=== PATIENT | female | born 1985 | race Caucasian/White ===

== ENCOUNTER 2025-07-06 14:43 | Outpatient (AMB) | payer OTHER, SELFPAY ==
--- NOTE | 2025-07-06 14:46 | A.OFFPC_ITS ---
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 Glove Presser Required: No Allergies No Known Allergies Allergy (Verified 07/06/25 14:56) Medication List - Last Reconciled 07/07/25 by EDWARD Wetzel drospirenone (contraceptive) (Slynd) 4 mg PO DAILY levothyroxine 50 mcg PO DAILY Tobacco use date assessed: 07/06/25 Dental Screening Dental Screen Date: 07/06/25 Did you have a dental visit in the last 12 months?: Yes Did you have a dental problem in the last 6 months where you did not have access to dental care?: No Was dental information given to patient?: Patient has dentist HPI HPI Comments History of Present Illness Details This is a 40-year-old female with a past medical history of hypothyroidism, hyperlipidemia, obesity, CHEK2 mutation and PCOS presenting to establish care. She would like her physical done today. CheK2 mutation-associated with increased risk of breast cancer and colon cancer. First colonoscopy is recommended at age 41 years. She is followed by the breast specialist at [facility] and has regular mammograms and MRI. She reports last mammogram was in summer 2024 and MRI in October 2024. Patient's mother had breast cancer at age 42. Her sister has a history of melanoma as well as her niece. Patient is agreeable to referral to Dermatology for a skin exam which I recommended doing at least annually. I referred her to [facility]. There is a strong family history of cardiovascular disease. One of her brothers had a heart attack at age 39 and just had a triple CABG at age 55. Her other brother had a heart attack at age 36. One of them is a smoker. Patient has been told she has high cholesterol, but she has not had to take medication for it. She denies chest pain or shortness of breath. She is agreeable to a coronary artery CT scan. We will fax this to [facility]. We will check her fasting lipid profile. I recommended the Mediterranean diet and avoiding smoking and excessive alcohol. Hypothyroidism is managed with levothyroxine 50 mcg daily. She is currently . She does have some fatigue associated with this and has gained weight since the dose of levothyroxine was reduced about 6 months ago. Check TSH. She is concerned about her weight and PCOS and is interested in restarting metformin. She has a history of hypertension previously treated with medications, but she was able to discontinue it. Her blood pressure is elevated today, but she is very nervous. She will follow a low-sodium diet. She should avoid excessive caffeine. She should exercise, and we will recheck this at her follow up appointment. ROS: Constitutional: No unexplained weight loss, fever, chills, fatigue or night sweats. Eyes: No vision changes, blurry vision, double vision, eye pain, eye redness, eye discharge. ENT: No hearing loss, sneezing, congestion, runny nose or sore throat. Respiratory: No shortness of breath, cough or sputum production. Cardiovascular: No chest pain, chest pressure or chest discomfort. No palpitations or pedal edema. Gastrointestinal: No anorexia, nausea, vomiting or diarrhea. No abdominal pain or blood in stool. Genitourinary: No dysuria, hematuria, urinary frequency. Neurologic: No headache, dizziness, syncope, unilateral weakness, ataxia, numbness or tingling in the extremities. Musculoskeletal: No muscle pain, back pain, joint pain or swelling. Hematologic/Lymphatics: No bleeding or bruising. No painful lymph nodes. Skin: No rash Endocrine: No cold or heat intolerance. No polyuria or polydipsia. Psychiatric: No depression. + anxiety Physical exam: Constitutional: Alert, in no distress. Head: Normocephalic. Eyes: Pupils are equal, round and reactive to light. Extraocular muscles intact. Ear, Nose and Throat: Canals clear. TMs normal. Normal nasal mucosa. No nasal discharge. No oral lesions. Neck: Supple, Full range of motion. No lymphadenopathy. No palpable thyroid masses. Respiratory: Clear to auscultation. Cardiovascular: S1 S2 regular. No murmurs. No carotid bruits. Gastrointestinal: Abdomen soft, non-tender, non-distended. Normal bowel sounds. No palpable masses. Neurologic: No focal neurological deficits. Symmetric patellar reflexes. Moves all extremities spontaneously. Sensation intact bilaterally. Skin: No rashes Musculoskeletal: No gross deformities. Normal range of motion. Extremities: Warm and well perfused. No clubbing, cyanosis or edema. Psychiatric: Normal mood and affect [facility] Medical History (Updated 07/07/25 @ 16:05 by EDWARD Wetzel) Obesity (BMI 30.0-34.9) Family history of breast cancer CHEK2 gene mutation positive PCOS (polycystic ovarian syndrome) Family history of early CAD Delivery by section of full-term infant Family history of melanoma Hypothyroid Routine physical examination Hyperlipidemia Surgical History (Updated 07/06/25 @ 16:32 by Kerri Aguilera [facility]) H/O tubal ligation Family History (Updated 07/06/25 @ 16:30 by Kerri Aguilera [facility]) Father Hypertension Hyperlipemia Lung cancer Mother Hypertension Hyperlipemia Cardiovascular disease FH: thyroid disease Paternal Grandmother Asthma Maternal Grandmother Diabetes Social History (Updated 07/06/25 @ 14:58 by Kerri Aguilera [facility]) Housing: House Alcohol intake: current Patient Tobacco Use Status: Never used Tobacco e-Cigarette/Vaping Use: Never Used Second Hand Smoke Exposure: No service: No Current occupational status: employed Current occupation: [employer] Current occupational exposures/hazards: Yes Cognitive needs: No Hearing needs: No Vision needs: No Questionnaire PHQ-9 Over the last 2 weeks, how often have you been bothered by any of the following problems? 1. Little interest or pleasure in doing things: not at all 2. Feeling down, depressed, or hopeless: not at all 3. Trouble falling or staying asleep, or sleeping too much: nearly every day 4. Feeling tired or having little energy: several days 5. Poor appetite or overeating: not at all 6. Feeling bad about yourself - or that you are a failure or have let yourself or your family down: not at all 7. Trouble concentrating on things, such as reading the newspaper or watching television: several days 8. Moving or speaking so slowly that other people could have noticed. Or the opposite - being so fidgety or restless that you have been moving around a lot more than usual: several days 9. Thoughts that you would be better off or of hurting yourself in some way: not at all Total score: 6 Depression Screening Interpretation: Positive Depression Screening Follow-up: Follow-up Visit Requested Depression Screening Done: Yes 03847 - PHQ-9 Billing: Yes Source: Developed by Drs. Shashank Montes De Oca, Thai Winters and colleagues, with an educational nathalia from [employer]. Thrive Questionnaire Date Thrive assessed: 07/06/25 I am a: Patient What is your living situation today?: I have a steady place to live Within the past 12 months, did the food you bought not last and you didn't have the money to get more?: Never true Within the past 12 months, did you worry whether your food would run out before you got money to buy more?: Never true Do you have trouble paying for medicines?: No Do you have trouble getting transportation to medical appointments?: No Do you have trouble paying your heating and electricity bill?: No Do you have trouble taking care of your child, family member or friend?: No Do you have trouble with day-to-day activities such as bathing, preparing meals, shopping, managing finances, etc.?: No Are you currently unemployed and looking for a job?: No Are you interested in more education?: No Please select the resources that you would like help with: None Currently or been in a relationship where the following occur: No concerns reported THRIVE Score: 0 AUDIT C Alcohol Use Questionnaire (AUDIT-C) 1. How often do you have a drink containing alcohol?: Never 3. How often do you have six or more drinks on one occasion?: Never Total Score: 0 TORITO-7 AMB Questionnaire TORITO-7 Date TORITO - 7 assessed: 07/06/25 Feeling nervous, anxious, or on edge: 0 = Not at all Not being able to stop or control worryin = Not at all Worrying too much about different things: 0 = Not at all Trouble relaxin = Not at all Being so restless that it is hard to sit still: 0 = Not at all Becoming easily annoyed or irritable: 0 = Not at all Feeling afraid as if something awful might happen: 0 = Not at all Total TORITO-7 score (0-4 normal; 5-9 mild; 10-14 moderate; 15-21 severe): 0 Source: Developed by Carol Castle Kurt Kroenke and colleagues, with an educational nathalia from [employer]. TORITO-7 Assessment Billing TORITO-7 Assessment Tool: TORITO-7 Assessment 07613 Physical exam (Primary Care) Vital Signs: Last Vital Signs Temp 98.1 F 07/06/25 14:58 Pulse 59 07/06/25 14:58 BP 146/80 H 07/06/25 14:58 Pulse Ox 97 07/06/25 14:58 Oxygen Delivery Method Room Air 07/06/25 14:58 BMI result Body Mass Index 34.4 Tobacco/Smoking Status: Tobacco use Status Tobacco use date assessed 07/06/25 07/06/25 15:01 Patient Tobacco Use Status Never used Tobacco 07/06/25 15:01 e-Cigarette/Vaping Use Never Used 07/06/25 15:01 PHQ-9: PHQ-9 Score PHQ-9: Total score 6 07/06/25 15:45 Depression Screening Interpretation: Positive Depression Screening Follow-up: Follow-up Visit Requested Thrive Assessment: Date of Thrive Assessment Date Thrive assessed 07/06/25 07/06/25 14:47 Currently or been in a relationship where the following occur: No concerns reported Office Procedures Flu Questionnaire Does the patient have a severe egg allergy?: No Does the patient have severe life threatening allergies?: No Has the patient ever had Guillain-[place]land Syndrome?: No Has the patient ever had any past reaction to a flu shot?: No Immunizations Fluarix [id number] (PF) 45 mcg (15 mcg x 3)/0.5 mL IM syringe Performing Provider: EDWARD Wetzel Performing Location[facility] Administered by: Kerri Aguilera CMA on 07/06/25 15:45 Dose Route Admin Location Dispensed Lot Number Expiration Date [facility] Manager Beverage 0.5 mL IM Left Deltoid 0.5 mL [id number] 04/06/26 29278-247-95 [employer] VIS Given Date VIS Provided VIS Publication Date 07/06/25 Single Vaccine 24 Eligibility Eligibility Date Funding Source Not [facility] Eligible 07/06/25 Private Coding Level of Care Code New Pt Level 3 (50478) New Pt Prev Care 18-39yr(66149 Diagnoses Routine physical examination Z00.00 Pure hypercholesterolemia E78.00 Hyperlipidemia type: pure hypercholesterolemia Hypothyroidism, unspecified type E03.9 Hypothyroidism type: unspecified Family history of early CAD Z82.49 Family history of melanoma Z80.8 PCOS (polycystic ovarian syndrome) E28.2 CHEK2 gene mutation positive Z15.89 Family history of breast cancer Z80.3 Obesity (BMI 30.0-34.9) E66.811 Additional Codes TORIOT-7 Assessment Billing - TORITO-7 Assessment Tool: TORITO-7 Assessment 57396 ([id number]) PHQ-9 - 92686 - PHQ-9 Billing: Yes ([id number]) Assessment & Plan Assessment & Plan (1) Routine physical examination: Code(s): Z00.00 - Encounter for general adult medical examination without abnormal findings Category: Medical Plan: Patient is seen today for a routine physical. As part of this visit we reviewed the following issues, which are considered and essential part of preventative health in this age group: - Breast Cancer screening - Annual Pattern Checker exam - Screening for colon cancer - Blood pressure screening - Cholesterol screening - Osteoporosis prevention including calcium/vitamin D intake, weight bearing exercise & smoking cessation - Nutritional and exercise counseling - Counseling of injury prevention including fire prevention, smoke alarms and seat belt usage - Screening for depression - Education about skin cancer - Recommendations about immunizations - Recommendation of an eye exam - Screening for substance abuse (2) Hyperlipidemia: Code(s): E78.5 - Hyperlipidemia, unspecified Category: Medical Qualifiers: Hyperlipidemia type: pure hypercholesterolemia Qualified Code(s): E78.00 - Pure hypercholesterolemia, unspecified Plan: See HPI (3) Hypothyroid: Code(s): E03.9 - Hypothyroidism, unspecified Category: Medical Qualifiers: Hypothyroidism type: unspecified Qualified Code(s): E03.9 - Hypothyroidism, unspecified Plan: See HPI (4) Family history of early CAD: Code(s): Z82.49 - Family history of ischemic heart disease and other diseases of the circulatory system Category: Medical Plan: See HPI (5) Family history of melanoma: Code(s): Z80.8 - Family history of malignant neoplasm of other organs or systems Category: Medical Plan: See HPI (6) PCOS (polycystic ovarian syndrome): Code(s): E28.2 - Polycystic ovarian syndrome Category: Medical Plan: See HPI (7) CHEK2 gene mutation positive: Code(s): Z15.89 - Genetic susceptibility to other disease Category: Medical Plan: See HPI (8) Family history of breast cancer: Code(s): Z80.3 - Family history of malignant neoplasm of breast Category: Medical Plan: See HPI (9) Obesity (BMI 30.0-34.9): Code(s): E66.811 - Obesity, class 1 Category: Medical Plan: See HPI Plan Follow up in 4-6 weeks. Orders: Orders CT Coronary Calcium Score 07/06/25 TSH reflex Free T4 Today E03.9 - Hypothyroidism, unspecified, E78.5 - Hyperlipidemia, unspecified, Z00.00 - Encounter for general adult medical examination without abnormal findings Lipid Panel Today E03.9 - Hypothyroidism, unspecified, E78.5 - Hyperlipidemia, unspecified, Z00.00 - Encounter for general adult medical examination without abnormal findings Comprehensive Met. Panel Today E03.9 - Hypothyroidism, unspecified, E78.5 - Hyperlipidemia, unspecified, Z00.00 - Encounter for general adult medical examination without abnormal findings Complete Blood Count no Diff Today E03.9 - Hypothyroidism, unspecified, E78.5 - Hyperlipidemia, unspecified, Z00.00 - Encounter for general adult medical examination without abnormal findings Influenza 7720-1945 Immunization 07/06/25 Z23 - Encounter for immunization Referrals NUTRITION TECHNICIAN Referral Z00.00 - Encounter for general adult medical examination without abnormal findings Dermatology Referral Z12.83 - Encounter for screening for malignant neoplasm of skin, Z80.8 - Family history of malignant neoplasm of other organs or systems
[2025-07-06 14:58] VITALS: BP 146/80; PULSE 59; TEMP 36.7; O2SAT 97; BMI 34.4
--- OUTSIDE RECORDS SUMMARY | 2025-07-06 16:35 | XMS_ITS ---
Author Name [facility] Organization Unknown Care Team Organization Name Specialty Phone Email Start Date End Da te [facility] Althea Tyler Primary Care 06/14/2023 05/26/2024 [facility] Peña Muniz Primary Care 08/15/202205/08
== END 2025-07-06 15:45 | disposition home or self-care (01) ==
LOC: HO.HMCFM 14:44
PROVIDERS: Visit Provider Physician Assistant Medical
DX: Z23 Encounter for immunization (principal)

== ENCOUNTER → 2025-07-06 14:43 | Outpatient (BNVA) | payer OTHER, SELFPAY | PROVIDERS: Visit Provider Physician Assistant Medical | DX: Z00.00 Encounter for general adult medical examination without abnormal findings (principal); Z76.89 Persons encountering health services in other specified circumstances; Z23 Encounter for immunization; E78.00 Pure hypercholesterolemia, unspecified; E03.9 Hypothyroidism, unspecified; E28.2 Polycystic ovarian syndrome; E66.811 Obesity, class 1; Z68.34 Body mass index [BMI] 34.0-34.9, adult; Z15.89 Genetic susceptibility to other disease; Z80.3 Family history of malignant neoplasm of breast; Z82.49 Family history of ischemic heart disease and other diseases of the circulatory system; Z80.8 Family history of malignant neoplasm of other organs or systems; Z13.31 Encounter for screening for depression; Z13.39 Encounter for screening examination for other mental health and behavioral disorders | CPT/HCPCS: 90471; 90656; 96127 ==

== ENCOUNTER 2025-07-07 08:46 | Outpatient (REF) | payer OTHER, SELFPAY ==
--- OUTSIDE RECORDS SUMMARY | 2025-07-07 09:17 | XMS_ITS | Encounter Summary ---
Author Organization [facility] Address [address] [place] [address] Care Team Providers Care Operating Room Tech Name Role Phone Vero Knight MD Primary Care Provider UnavailAlthea Krishna MD Unavailable UnavailAlthea Krishna MD Primary Care Provider Un available Encounter Details Date Type Department Care Team Description 02/13/2019 Sports Director Report Medical Records [address] [place] [address] Ariana Valentino MD Social History Tobacco Use Types Packs/Day Years Used Date Smoking Tobacco: Former Smokeless Tobacco: Never Alcohol Use Standard Drinks/Week Comments Yes 0 (1 standard drink = 0.6 oz pur e alcohol) very rarely Sex Assigned at Date Recorded Female 05/15/2023 11:29 AM EDT documented as of this encounter Plan of Treatment Not on file documented as of this encounter Visit Diagnoses Not on filedocumented in this encounter Care Teams Operating Room Tech Relationship Specialty Start Date End Date Vero Knight MD PCP - General Internal Medicine 08/13/15 05/06/23 Althea Tyler MD PCP - General Internal Medicine 05/07/23 Althea Tyler MD Specialist Internal Medicine 05/07/23 documented as of this encounter
--- OUTSIDE RECORDS SUMMARY | 2025-07-07 09:17 | XMS_ITS | Encounter Summary ---
Author Organization [facility] Address [address] [place] [address] Care Team Providers Care Vp Hr Diversity Name Role Phone Althea Tyler MD Unavailable Unavaila ble Althea Tyler MD Primary Care Provider Un available Reason for Visit * Reason Onset Date Comments medication problems 05/07/2023 Encounter Details Date Type Department Care Team Description 05/07/2023 Telephone Adult Medicine - [address] [address] Althea Tyler MD medication problems Social History Tobacco Use Types Packs/Day Years Used Date Smoking Tobacco: Former Smokeless Tobacco: Never Alcohol Use Standard Drinks/Week Comments Yes 0 (1 standard drink = 0.6 oz pur e alcohol) very rarely Sex Assigned at Date Recorded Female 05/15/2023 11:29 AM EDT documented as of this encounter Miscellaneous Notes * Telephone Encounter - Maddie Quiñones L.P.N. - 05/07/2023 11:20 AM EDT Patient scheduled a tele health to discuss requesting lab for thyroid Not sure if she is on correct dose * Telephone Encounter - Anastasia Dupont - 05/07/2023 10:14 AM EDT Who is calling? The patient Name of the medication Levothyroxine What is the specific problem or interaction? Pt calling in looking for new PCP, was a pt with tim in [place], PCP now [place]. She has upcoming physical 07/06 however would like to speak with nurse if something can be done regarding her Thyroid medication, pt says her enterprise application architect will no longer be supplying this medication anymore and advised pt that she needs to have PCP prescribe for her, pt says she does not know if she should be continuing on the dose she is on or if it needs to be changed, she feels well however, she does not know her current thyroid levels. If the patient is having a problem with taking the med - how long has the problem been going on? N/A documented in this encounter Plan of Treatment Not on file documented as of this encounter Visit Diagnoses Not on filedocumented in this encounter Care Teams Vp Hr Diversity Relationship Specialty Start Date End Date Althea Tyler MD PCP - General Internal Medicine 05/07/23 Althea Tyler MD Specialist Internal Medicine 05/07/23 documented as of this encounter
--- OUTSIDE RECORDS SUMMARY | 2025-07-07 09:17 | XMS_ITS | Encounter Summary ---
Author Organization [facility] Address [address] [place] [address] Care Team Providers Care Deputy Prosecuting Attorney Name Role Phone Vero Knight MD Primary Care Provider UnavailAlthea Krishna MD Unavailable Althea Polanco MD Primary Care Provider Un available Encounter Details Date Type Department Care Team Description 05/21/2019 Release of Information Medical Records [address] [place] [address] Abstract, Provider Social History Tobacco Use Types Packs/Day Years [...] on filedocumented in this encounter Care Teams Deputy Prosecuting Attorney Relationship Specialty Start Date End Date Vero Knight MD PCP - General Internal Medicine 08/13/15 05/06/23 Althea Tyler MD PCP - General Internal Medicine 05/07/23 Althea Tyler MD Specialist Internal Medicine 05/07/23 documented as of this encounter
--- OUTSIDE RECORDS SUMMARY | 2025-07-07 09:17 | XMS_ITS | Encounter Summary ---
Author Organization [facility] Address [address] [place] [address] Care Team Providers Care Waste Machine Operator Name Role Phone Vero Knight MD Primary Care Provider UnavailAlthea Krishna MD Unavailable Althea Polanco MD Primary Care Provider Un available Encounter Details Date Type Department Care Team Description 05/17/2017 Humanities Division Chair Report Medical Records [address] [place] [address] Asia Barriga Social History Tobacco Use Types Packs/Day Years Used Date Smoking Tobacco: Former Alcohol Use Standard Drinks/Week Comments Yes 0 (1 standard drink = 0.6 oz pur e alcohol) very rarely Sex Assigned at Date Recorded Female 05/15/2023 11:29 AM EDT documented as of this encounter Plan of Treatment Not on file documented as of this encounter Visit Diagnoses Not on filedocumented in this encounter Care Teams Waste Machine Operator Relationship Specialty Start Date End Date Vero Knight MD PCP - General Internal Medicine 08/13/15 05/06/23 Althea Tyler MD PCP - General Internal Medicine 05/07/23 Althea Tyler MD Specialist Internal Medicine 05/07/23 documented as of this encounter
--- OUTSIDE RECORDS SUMMARY | 2025-07-07 09:17 | XMS_ITS | Encounter Summary ---
Author Organization [facility] Address [address] [place] [address] Care Team Providers Care Terrazzo Installer Name Role Phone Althea Tyler MD Primary Care Provider Un available Encounter Details Date Type Department Care Team Description 01/29/2024 [facility] Medical Records [address] [place] [address] Shashank Rodriguez Social History Tobacco Use Types Packs/Day Years [...] on filedocumented in this encounter Care Teams Terrazzo Installer Relationship Specialty Start Date End Date Althea Tyler MD PCP - General Internal Medicine 05/07/23 documented as of this encounter
--- OUTSIDE RECORDS SUMMARY | 2025-07-07 09:17 | XMS_ITS | Encounter Summary ---
Author Organization [facility] Address [address] [place] [address] Care Team Providers Care Defensive Secondary Coach Name Role Phone Vero Knight MD Primary Care Provider UnavailAlthea Krishna MD Unavailable Althea Polanco MD Primary Care Provider Un available Encounter Details Date Type Department Care Team Description 01/29/2019 Release of Information Medical Records [address] [place] [id number] Abstract, Provider Social History Tobacco Use Types [...] on filedocumented in this encounter Care Teams Defensive Secondary Coach Relationship Specialty Start Date End Date Vero Knight MD PCP - General Internal Medicine 08/13/15 05/06/23 Althea Tyler MD PCP - General Internal Medicine 05/07/23 Althea Tyler MD Specialist Internal Medicine 05/07/23 documented as of this encounter
--- OUTSIDE RECORDS SUMMARY | 2025-07-07 09:17 | XMS_ITS | Encounter Summary ---
Author Organization [facility] Address [address] [place] [address] Care Team Providers Care Laundry Technician Name Role Phone Vero Knight MD Primary Care Provider UnavailAlthea Krishna MD Unavailable Althea Polanco MD Primary Care Provider Un available Encounter Details Date Type Department Care Team Description 03/19/2017 Hospital Medical Records [address] [place], [place] [id number] [place] [address] Renee Social History Tobacco Use Types Packs/Day Years [...] on filedocumented in this encounter Care Teams Laundry Technician Relationship Specialty Start Date End Date Vero Knight MD PCP - General Internal Medicine 08/13/15 05/06/23 Althea Tyler MD PCP - General Internal Medicine 05/07/23 lAthea Tyler MD Specialist Internal Medicine 05/07/23 documented as of this encounter
--- OUTSIDE RECORDS SUMMARY | 2025-07-07 09:17 | XMS_ITS | Encounter Summary ---
Author Organization [facility] Address [address] [place] [address] Care Team Providers Care Mechanical And Auto Body Car Checker Name Role Phone Vero Knight MD Primary Care Provider UnavailAlthea Krishna MD Unavailable Althea Polanco MD Primary Care Provider Un available Encounter Details Date Type Department Care Team Description 02/16/2017 Transfer Records Medical Records [address] [place] [address] Abstract, Provider Social History Tobacco Use Types Packs/Day Years Used Date Smoking Tobacco: Passive Smo ke Exposure - Never Smoker Alcohol Use Standard Drinks/Week Comments Yes 0 (1 standard drink = 0.6 oz pur e alcohol) very rarely Sex Assigned at Date Recorded Female 05/15/2023 11:29 AM EDT documented as of this encounter Plan of Treatment Not on file documented as of this encounter Visit Diagnoses Not on filedocumented in this encounter Care Teams Mechanical And Auto Body Car Checker Relationship Specialty Start Date End Date Vero Knight MD PCP - General Internal Medicine 08/13/15 05/06/23 Althea Tyler MD PCP - General Internal Medicine 05/07/23 Althea Tyler MD Specialist Internal Medicine 05/07/23 documented as of this encounter
--- OUTSIDE RECORDS SUMMARY | 2025-07-07 09:17 | XMS_ITS | Encounter Summary ---
Author Organization [facility] Address [address] [place] [address] Care Team Providers Care Electrical Assembler Name Role Phone Vero Knight MD Primary Care Provider UnavailAlthea Krishna MD Unavailable Althea Polanco MD Primary Care Provider Un available Encounter Details Date Type Department Care Team Description 03/22/2018 Release of Information Medical Records [address] [place] [address] Abstract, Provider Social History Tobacco Use Types [...] on filedocumented in this encounter Care Teams Electrical Assembler Relationship Specialty Start Date End Date Vero Knight MD PCP - General Internal Medicine 08/13/15 05/06/23 Althea Tyler MD PCP - General Internal Medicine 05/07/23 Althea Tyler MD Specialist Internal Medicine 05/07/23 documented as of this encounter
--- OUTSIDE RECORDS SUMMARY | 2025-07-07 09:17 | XMS_ITS | Encounter Summary ---
Author Organization [facility] Address [address] [place] [address] Care Team Providers Care Interior Design Professor Name Role Phone Vero Knight MD Primary Care Provider UnavailAlthea Krishna MD Unavailable Althea Polanco MD Primary Care Provider Un available Encounter Details Date Type Department Care Team Description 04/06/2017 Transfer Records Medical Records [address] [place] [address] Abstract, Provider Social History Tobacco Use Types [...] on filedocumented in this encounter Care Teams Interior Design Professor Relationship Specialty Start Date End Date Vero Knight MD PCP - General Internal Medicine 08/13/15 05/06/23 Althea Tyler MD PCP - General Internal Medicine 05/07/23 Althea Tyler MD Specialist Internal Medicine 05/07/23 documented as of this encounter
--- OUTSIDE RECORDS SUMMARY | 2025-07-07 09:17 | XMS_ITS | Encounter Summary ---
Author Organization [facility] Address [address] [place] [address] Care Team Providers Care Newspaper Correspondent Name Role Phone Vero Knight MD Primary Care Provider UnavailAlthea Krishna MD Unavailable Althea Polanco MD Primary Care Provider Un available Encounter Details Date Type Department Care Team Description 04/18/2016 Customs Compliance Analyst Report Medical Records [address] [place] [address] Laci Pressley MD Social History Tobacco Use Types Packs/Day [...] on filedocumented in this encounter Care Teams Newspaper Correspondent Relationship Specialty Start Date End Date Vero Knight MD PCP - General Internal Medicine 08/13/15 05/06/23 Althea Tyler MD PCP - General Internal Medicine 05/07/23 Althea Tyler MD Specialist Internal Medicine 05/07/23 documented as of this encounter
--- OUTSIDE RECORDS SUMMARY | 2025-07-07 09:17 | XMS_ITS | Encounter Summary ---
Author Organization [facility] Address [address] [place] [address] Care Team Providers Care Cleaner Housekeeping Name Role Phone Saleem Cabrera MD Primary Care Provider Unavailab Fiore Pcp Primary Care Provider Vero Kovacs MD Primary Care Provider Unavaila Althea Pabon MD Unavailable UnavailAlthea Krishna MD Primary Care Provider Un available Encounter Details Date Type Department Care Team Description 03/31/2014 Orders Only Medicine/Pediatrics - [address] [id number] Saleem Cabrera MD Social History Tobacco Use Types Packs/Day Years Used Date Smoking Tobacco: Never Alcohol Use Standard Drinks/Week Comments Yes 0 (1 standard drink = 0.6 oz pur e alcohol) very rarely Sex Assigned at Date Recorded Female 05/15/2023 11:29 AM EDT documented as of this encounter Plan of Treatment Not on file documented as of this encounter Visit Diagnoses Not on filedocumented in this encounter Care Teams Cleaner Housekeeping Relationship Specialty Start Date End Date Saleem Cabrera MD PCP - General Internal Medicine 01/27/14 10/07/14 Rk, Pcp PCP - General Internal Medicine 08/09/15 08/12/15 Vero Knight MD PCP - General Internal Medicine 08/13/15 05/06/23 Althea Tyler MD PCP - General Internal Medicine 05/07/23 Althea Tyler MD Specialist Internal Medicine 05/07/23 documented as of this encounter
[2025-07-07 11:43] LABS: Hematocrit 42.7 % (37.0-47.0); Hemoglobin 14.9 g/dl (12.0-16.0); Mean Corpuscular HGB Conc 34.9 g/dl (31.0-35.0); Mean Corpuscular Hemoglobin 31.2 pg (27.0-33.0); Mean Corpuscular Volume 89.3 fL (80.0-98.0); NRBC Abs Auto 0.000 X10*3/uL (0.0-0.012); NRBC Pct Auto 0.0 /100WBC (0.0-0.2); Platelet Count 416 X10*3/uL (160-400); Red Blood Count 4.78 X10*6/uL (4.20-5.50); White Blood Count 7.4 X10*3/uL (4.8-10.8)
[2025-07-07 12:09] LABS: Alanine Aminotransferase 53 U/L (0-31); Albumin Level 4.8 g/dL (3.5-5.0); Alkaline Phosphatase 81 U/L (39-117); Anion Gap 14 (12-20); Aspartate Amino Transferase 36 U/L (5-31); Blood Urea Nitrogen 16 mg/dL (9-16); Calcium 10.0 mg/dL (8.4-10.2); Carbon Dioxide 25 mmol/L (22-29); Chloride 104 mmol/L (96-108); Cholesterol 212 mg/dL (<200); Estimated Glomerular Filt Rate > 60; HDL Cholesterol 58 mg/dL (>40); Potassium 4.2 mmol/L (3.3-5.1); Sodium 139 mmol/L (135-145); Total Protein 7.8 g/dL (6.5-8.0); Triglycerides 83 mg/dL (<150)
== END 2025-07-07 08:47 | disposition home or self-care (01) ==
LOC: HO.WFDLDS 08:46
PROVIDERS: Visit Provider Physician Assistant Medical
DX: Z00.00 Encounter for general adult medical examination without abnormal findings (principal); E78.5 Hyperlipidemia, unspecified; E03.9 Hypothyroidism, unspecified
CPT/HCPCS: 36415; 80053; 80061; 84443; 85027

== ENCOUNTER 2025-08-06 09:51 | Outpatient (AMB) | payer OTHER, SELFPAY ==
--- NOTE | 2025-08-06 09:58 | MHC.PC.OV ---
Vital Signs 08/06/25 10:01 Height 5 ft 3 in Weight 196 lb 4 oz BMI 34.8 BP 140/90 H Blood Pressure Location Rt brachial Position Sitting Respiration 15 Pulse 81 Pulse Source Pulse Oximeter Temp 98.1 F Temp Source Temporal Artery Scan Pulse Oximetry (%) 98 Oxygen Delivery Method Room Air Intake Visit Reasons: HTN follow up Intake Note: Jennifer presents in the office today for a follow up to hypertension. Allergies No Known Allergies Allergy (Verified 08/06/25 10:01) Tobacco use date assessed: 08/06/25 Dental Screening Dental Screen Date: 08/06/25 Did you have a dental visit in the last 12 months?: Yes Did you have a dental problem in the last 6 months where you did not have access to dental care?: No Was dental information given to patient?: Patient has dentist HPI HPI Comments History of Present Illness Details This is a 40-year-old female with a past medical history of hypothyroidism, hyperlipidemia, obesity, CHEK2 mutation and PCOS presenting for follow up. The patient is going to be repeating lab results that were abnormal in June. Platelet count was 416,000, total bilirubin 1.4, AST 36, ALT 53. LDL cholesterol was also elevated at 138, but HDL and triglycerides were normal. The patient has a history of hypertension and was treated in the past with a beta-tanesha during . Blood pressure was elevated at our last visit, and it is elevated today. The patient has also been monitoring at home, and she has similar blood pressure readings that we reviewed today. She is a nonsmoker. She is avoiding excessive caffeine and following a low-sodium diet. She is trying to exercise more. There is a strong family history of cardiovascular disease. One of her brothers had a heart attack at age 39 and just had a triple CABG at age 55. Her other brother had a heart attack at age 36. One of them is a smoker. Coronary artery CT scan has been ordered. CheK2 mutation-associated with increased risk of breast cancer and colon cancer. First colonoscopy is recommended at age 41 years. She is followed by the breast specialist at [facility] and has regular mammograms and MRI. She reports last mammogram was in summer 2024 and MRI in October 2024. Patient's mother had breast cancer at age 42. Hypothyroidism is managed with levothyroxine 50 mcg daily. TSH is normal. Patient says that her ears have been a little achy, but she denies fevers or chills or hearing loss. ROS: Eyes: No vision changes, blurry vision, double vision Respiratory: No shortness of breath, cough or sputum production. Cardiovascular: No chest pain, chest pressure or chest discomfort. No palpitations or pedal edema. Gastrointestinal: No anorexia, nausea, vomiting or diarrhea. No abdominal pain Neurologic: No headache, dizziness, syncope Psychiatric: No depression. + anxiety Physical exam: Constitutional: Alert, in no distress. Eyes: Pupils are equal, round and reactive to light. Extraocular muscles intact. Ear, Nose and Throat: Canals clear. TMs without erythema, effusion or bulging. Normal nasal mucosa. No nasal discharge. No oral lesions. Respiratory: Clear to auscultation. Cardiovascular: S1 S2 regular. No murmurs. Extremities: Warm and well perfused. No clubbing, cyanosis or edema. Psychiatric: Normal mood and affect [facility] Medical History (Updated 08/06/25 @ 10:26 by EDWARD Wetzel) Essential hypertension Elevated liver enzymes Elevated platelet count Obesity (BMI 30.0-34.9) Family history of breast cancer CHEK2 gene mutation positive PCOS (polycystic ovarian syndrome) Family history of early CAD Delivery by section of full-term Family history of melanoma Hypothyroid Routine physical examination Hyperlipidemia Surgical History (Updated 07/06/25 @ 16:32 by Kerri Aguilera CMA) H/O tubal ligation Family History Father Hypertension Hyperlipemia Lung cancer Mother Hypertension Hyperlipemia Cardiovascular disease FH: thyroid disease Paternal Grandmother Asthma Maternal Grandmother Diabetes Social History (Updated 08/06/25 @ 10:01 by Kerri Aguilera CMA) Housing: House Alcohol intake: current Patient Tobacco Use Status: Never used Tobacco e-Cigarette/Vaping Use: Never Used Second Hand Smoke Exposure: No service: No Current occupational status: employed Current occupation: [employer] Current occupational exposures/hazards: Yes Cognitive needs: No Hearing needs: No Vision needs: No Questionnaire Thrive Questionnaire Date Thrive assessed: 06/30/25 I am a: Patient What is your living situation today?: I have a steady place to live Within the past 12 months, did the food you bought not last and you didn't have the money to get more?: Never true Within the past 12 months, did you worry whether your food would run out before you got money to buy more?: Never true Do you have trouble paying for medicines?: No Do you have trouble getting transportation to medical appointments?: No Do you have trouble paying your heating and electricity bill?: No Do you have trouble taking care of your child, family member or friend?: No Do you have trouble with day-to-day activities such as bathing, preparing meals, shopping, managing finances, etc.?: No Are you currently unemployed and looking for a job?: No Are you interested in more education?: No Please select the resources that you would like help with: None Currently or been in a relationship where the following occur: No concerns reported THRIVE Score: 0 TORITO-7 AMB Questionnaire TORITO-7 Date TORITO - 7 assessed: 07/06/25 Source: Developed by Drs. Shashank Montes De Oca, Carol Whitaker, Thai Henderson and colleagues, with an educational nathalia from [employer]. Physical exam (Primary Care) Vital Signs: Last Vital Signs Temp 98.1 F 08/06/25 10:01 Pulse 81 08/06/25 10:01 Resp 15 08/06/25 10:01 BP 140/90 H 08/06/25 10:01 Pulse Ox 98 08/06/25 10:01 Oxygen Delivery Method Room Air 08/06/25 10:01 BMI result Body Mass Index 34.8 Tobacco/Smoking Status: Tobacco use Status Tobacco use date assessed 08/06/25 08/06/25 10:06 Patient Tobacco Use Status Never used Tobacco 08/06/25 10:06 e-Cigarette/Vaping Use Never Used 08/06/25 10:06 Thrive Assessment: Date of Thrive Assessment Date Thrive assessed 06/30/25 08/06/25 10:06 Currently or been in a relationship where the following occur: No concerns reported Coding Level of Care Code Est Pt Level 4 (61494) Complex EM visit Add On G2211 Diagnoses Essential hypertension I10 Family history of early CAD Z82.49 Pure hypercholesterolemia E78.00 Hyperlipidemia type: pure hypercholesterolemia Hypothyroidism, unspecified type E03.9 Hypothyroidism type: unspecified Obesity (BMI 30.0-34.9) E66.811 Elevated liver enzymes R74.8 Elevated platelet count R79.89 Assessment & Plan Assessment & Plan (1) Essential hypertension: Code(s): I10 - Essential (primary) hypertension Category: Medical Plan: Patient is currently . Start nifedipine ER 30 mg daily. Recommended low-salt diet and avoidance of caffeine. She is working on weight loss. (2) Family history of early CAD: Code(s): Z82.49 - Family history of ischemic heart disease and other diseases of the circulatory system Category: Medical Plan: Proceed with coronary artery CT scan. Modify risk factors. (3) Hyperlipidemia: Code(s): E78.5 - Hyperlipidemia, unspecified Category: Medical Qualifiers: Hyperlipidemia type: pure hypercholesterolemia Qualified Code(s): E78.00 - Pure hypercholesterolemia, unspecified Plan: Recommended Mediterranean diet, avoidance of smoking and alcohol. She is trying to lose weight. (4) Hypothyroid: Code(s): E03.9 - Hypothyroidism, unspecified Category: Medical Qualifiers: Hypothyroidism type: unspecified Qualified Code(s): E03.9 - Hypothyroidism, unspecified Plan: Continue levothyroxine. (5) Obesity (BMI 30.0-34.9): Code(s): E66.811 - Obesity, class 1 Category: Medical (6) Elevated liver enzymes: Code(s): R74.8 - Abnormal levels of other serum enzymes Category: Medical Plan: Recheck. (7) Elevated platelet count: Code(s): R79.89 - Other specified abnormal findings of blood chemistry Category: Medical Plan: Rechecked. Plan Follow up in 1 month. Orders: Orders Basic Metabolic Panel 08/06/25 I10 - Essential (primary) hypertension Medications: New levothyroxine (Synthroid) 50 mcg PO DAILY 90 tabs 3RF nifedipine ER (Procardia XL) 30 mg PO DAILY 90 tabs 0RF
[2025-08-06 10:01] VITALS: BP 140/90; PULSE 81; RESP 15; TEMP 36.7; O2SAT 98; BMI 34.8
== END 2025-08-06 10:37 | disposition home or self-care (01) ==
LOC: HO.HMCFM 09:51
PROVIDERS: PCP Physician Assistant Medical; Visit Provider Physician Assistant Medical
DX: I10 Essential (primary) hypertension (principal); E78.00 Pure hypercholesterolemia, unspecified; E66.811 Obesity, class 1; Z68.34 Body mass index [BMI] 34.0-34.9, adult; Z82.49 Family history of ischemic heart disease and other diseases of the circulatory system; E03.9 Hypothyroidism, unspecified; R74.8 Abnormal levels of other serum enzymes; R79.89 Other specified abnormal findings of blood chemistry

== ENCOUNTER 2025-08-21 08:40 | Outpatient (REF) | payer OTHER, SELFPAY ==
[2025-08-21 11:10] LABS: MANUAL DIFF FLAG NO
[2025-08-21 11:43] LABS: Hematocrit 42.4 % (37.0-47.0); Hemoglobin 14.6 g/dl (12.0-16.0); Imm Gran Abs Auto 0.02 X10*3/uL (0.00-0.03); Imm Gran Pct Auto 0.3 % (0.0-0.4); Lymphocytes Absolute Auto 2.5 X10*3/uL (1.2-4.9); Mean Corpuscular HGB Conc 34.4 g/dl (31.0-35.0); Mean Corpuscular Hemoglobin 31.2 pg (27.0-33.0); Mean Corpuscular Volume 90.6 fL (80.0-98.0); NRBC Abs Auto 0.000 X10*3/uL (0.0-0.012); NRBC Pct Auto 0.0 /100WBC (0.0-0.2); Platelet Count 363 X10*3/uL (160-400); Red Blood Count 4.68 X10*6/uL (4.20-5.50); White Blood Count 7.8 X10*3/uL (4.8-10.8)
[2025-08-21 12:24] LABS: Alanine Aminotransferase 65 U/L (0-31); Albumin Level 4.7 g/dL (3.5-5.0); Alkaline Phosphatase 79 U/L (39-117); Anion Gap 12 (12-20); Aspartate Amino Transferase 38 U/L (5-31); Blood Urea Nitrogen 13 mg/dL (9-16); Calcium 9.4 mg/dL (8.4-10.2); Carbon Dioxide 24 mmol/L (22-29); Chloride 104 mmol/L (96-108); Estimated Glomerular Filt Rate > 60; Iron 76 mcg/dL (30-160); Percent Iron Saturation 20 % (15-50); Potassium 4.0 mmol/L (3.3-5.1); Sodium 136 mmol/L (135-145); Total Iron Binding Capacity 380 mcg/dL (228-428); Total Protein 7.5 g/dL (6.5-8.0); Unsaturated Iron Binding 304 ug/dL
[2025-08-21 12:34] LABS: Hepatitis A Antibody IgM 0.19 Index (0-0.79); ~Hepatitis A Antibody IgM Nonreactive (Nonreactive)
[2025-08-21 12:35] LABS: HBS Num1 0.09 mIU/mL (0-7.99); HBc Num1 0.11 S/CO (0.00-0.79); HBsAGNum1 0.65 S/CO (0.00-0.99); Hepatitis A Antibody IgM 0.18 Index (0-0.79); Hepatitis B Surface Antigen Negative (Negative); ~HepC Num1 0.10 S/CO (0.00-0.79); ~Hepatitis A Antibody IgM Nonreactive (Nonreactive); ~Hepatitis B Surface Antibody NONREACTIVE (Nonreactive); ~Hepatitis C Antibody Nonreactive (Nonreactive)
[2025-08-21 12:45] LABS: Ferritin 66 ng/mL (10-122)
[2025-08-21 12:47] LABS: Folate 11.0 ng/mL (> or = 4.0); Vitamin B12 404 pg/mL (200-900)
== END 2025-08-21 08:41 | disposition home or self-care (01) ==
LOC: HO.WFDLDS 08:40
PROVIDERS: Visit Provider Physician Assistant Medical
DX: I10 Essential (primary) hypertension (principal); E78.00 Pure hypercholesterolemia, unspecified; E03.9 Hypothyroidism, unspecified; R79.89 Other specified abnormal findings of blood chemistry; R74.8 Abnormal levels of other serum enzymes
CPT/HCPCS: 80048; 80076; 82607; 82728; 82746; 83540; 85025; 86704; 86706; 86709; 86803; 87340

== ENCOUNTER 2025-09-10 09:02 | Outpatient (AMB) | payer OTHER, SELFPAY ==
--- NOTE | 2025-09-10 09:14 | A.OFFVIS_ITS ---
Intake Visit Reasons: Hypertension Intake Note: Jennifer presents in the office today to follow up to hypertension. Allergies No Known Allergies Allergy (Verified 08/06/25 10:01) [facility] Medical History (Updated 08/06/25 @ 10:26 by EDWARD Wetzel) Essential hypertension Elevated liver enzymes Elevated platelet count Obesity (BMI 30.0-34.9) Family history of breast cancer CHEK2 gene mutation positive PCOS (polycystic ovarian syndrome) Family history of early CAD Delivery by section of full-term infant Family history of melanoma Hypothyroid Routine physical examination Hyperlipidemia Surgical History (Updated 07/06/25 @ 16:32 by Kerri Aguilera CMA) H/O tubal ligation Family History Father Hypertension Hyperlipemia Lung cancer Mother Hypertension Hyperlipemia Cardiovascular disease FH: thyroid disease Paternal Grandmother Asthma Maternal Grandmother Diabetes Social History (Updated 08/06/25 @ 10:01 by Kerri Aguilera CMA) Housing: House Alcohol intake: current Patient Tobacco Use Status: Never used Tobacco e-Cigarette/Vaping Use: Never Used Second Hand Smoke Exposure: No service: No Current occupational status: employed Current occupation: [employer] Current occupational exposures/hazards: Yes Cognitive needs: No Hearing needs: No Vision needs: No Coding
--- NOTE | 2025-09-10 09:16 | A.OFFPC_ITS ---
Vital Signs 09/10/25 09:19 Height 5 ft 3 in Weight 190 lb 6 oz BMI 33.7 BP 156/88 H Blood Pressure Location Rt brachial Position Sitting Respiration 15 Pulse 82 Pulse Source Pulse Oximeter Temp 98.2 F Temp Source Temporal Artery Scan Pulse Oximetry (%) 98 Oxygen Delivery Method Room Air Intake Visit Reasons: Hypertension Intake Note: Jennifer presents in the office today for a follow up to hypertension. Patient is not taking BP medication. Provider Relations Representative Required: No Is last menstrual period known: Yes Last menstrual period: 08/25/25 Post menopausal: No Patient : No Allergies nifedpine Allergy (Intermediate, Uncoded 09/10/25 09:30) tremors, headaches, tachycardia Tobacco use date assessed: 09/10/25 Dental Screening Dental Screen Date: 09/10/25 Did you have a dental visit in the last 12 months?: Yes Did you have a dental problem in the last 6 months where you did not have access to dental care?: No Was dental information given to patient?: Patient has dentist HPI HPI Comments History of Present Illness Details This is a 40-year-old female with a past medical history of hypothyroidism, hyperlipidemia, obesity, CHEK2 mutation and PCOS presenting for follow up. Her platelet count normalized. Her liver enzymes are still mildly elevated, and a liver ultrasound has been ordered. She was given the number to call radiology to schedule this today. She has mild hyperlipidemia with an LDL cholesterol of 138. Her HDL and triglycerides are normal. The patient has a history of hypertension and was treated in the past with a beta-tanesha during . After our last visit she took 2 doses of nifedipine (prescribed because patient was ). She developed shaking, headaches and tachycardia and discontinued the medication. She is still monitoring her blood pressure at home, and it is still elevated. She is a nonsmoker. She is avoiding excessive caffeine and following a low-sodium diet. She started exercising. She lost 6 lb. Patient admits to significant anxiety. She worries frequently about many different things during the day. She perseverates on things, and she has racing thoughts when she tries to go to sleep at night. She has a history of anxiety. She was previously treated with 1 SSRI which caused worsening mood, but she was on Prozac which helped. She would like to try it again. There is a strong family history of cardiovascular disease. One of her brothers had a heart attack at age 39 and just had a triple CABG at age 55. Her other brother had a heart attack at age 36. One of them is a smoker. Coronary artery CT scan has been ordered. CheK2 mutation-associated with increased risk of breast cancer and colon cancer. First colonoscopy is recommended at age 41 years. She is followed by the breast specialist at [facility] and has regular mammograms and MRI. She reports last mammogram was in summer 2024 and MRI in October 2024. Patient's mother had breast cancer at age 42. Hypothyroidism is managed with levothyroxine 50 mcg daily. TSH is normal. She has stopped . ROS: Eyes: No vision changes, blurry vision, double vision Respiratory: No shortness of breath, cough or sputum production. Cardiovascular: No chest pain, chest pressure or chest discomfort. No palpitations or pedal edema. Gastrointestinal: No anorexia, nausea, vomiting or diarrhea. No abdominal pain Neurologic: No headache, dizziness, syncope Psychiatric: No depression. + anxiety Physical exam: Constitutional: Alert, in no distress. Eyes: Pupils are equal, round and reactive to light. Extraocular muscles intact. Ear, Nose and Throat: Canals clear. TMs without erythema, effusion or bulging. Normal nasal mucosa. No nasal discharge. No oral lesions. Respiratory: Clear to auscultation. Cardiovascular: S1 S2 regular. No murmurs. Extremities: Warm and well perfused. No clubbing, cyanosis or edema. Psychiatric: Normal mood and affect [facility] Medical History (Updated 09/11/25 @ 08:22 by EDWARD Wetzel) Anxiety Essential hypertension Elevated liver enzymes Elevated platelet count Obesity (BMI 30.0-34.9) Family history of breast cancer CHEK2 gene mutation positive PCOS (polycystic ovarian syndrome) Family history of early CAD Delivery by section of full-term Family history of melanoma Hypothyroid Routine physical examination Hyperlipidemia Surgical History (Updated 07/06/25 @ 16:32 by Kerri Aguilera CMA) H/O tubal ligation Family History Father Hypertension Hyperlipemia Lung cancer Mother Hypertension Hyperlipemia Cardiovascular disease FH: thyroid disease Paternal Grandmother Asthma Maternal Grandmother Diabetes Social History (Updated 09/10/25 @ 09:19 by Kerri Aguilera CMA) Housing: House Alcohol intake: current Patient Tobacco Use Status: Never used Tobacco e-Cigarette/Vaping Use: Never Used Second Hand Smoke Exposure: No service: No Current occupational status: employed Current occupation: [employer] Current occupational exposures/hazards: Yes Cognitive needs: No Hearing needs: No Vision needs: No Female Reproductive History Menstrual Date of last menstrual period: 08/25/25 Questionnaire Thrive Questionnaire Date Thrive assessed: 06/30/25 I am a: Patient What is your living situation today?: I have a steady place to live Within the past 12 months, did the food you bought not last and you didn't have the money to get more?: Never true Within the past 12 months, did you worry whether your food would run out before you got money to buy more?: Never true Do you have trouble paying for medicines?: No Do you have trouble getting transportation to medical appointments?: No Do you have trouble paying your heating and electricity bill?: No Do you have trouble taking care of your child, family member or friend?: No Do you have trouble with day-to-day activities such as bathing, preparing meals, shopping, managing finances, etc.?: No Are you currently unemployed and looking for a job?: No Are you interested in more education?: No Please select the resources that you would like help with: None Currently or been in a relationship where the following occur: No concerns reported THRIVE Score: 0 TORITO-7 AMB Questionnaire TORITO-7 Date TORITO - 7 assessed: 07/06/25 Source: Developed by Drs. Shashank Montes De Oca, Carol Whitaker, Thai Henderson and colleagues, with an educational nathalia from [employer]. Physical exam (Primary Care) Vital Signs: Last Vital Signs Temp 98.2 F 09/10/25 09:19 Pulse 82 09/10/25 09:19 Resp 15 09/10/25 09:19 BP 156/88 H 09/10/25 09:19 Pulse Ox 98 09/10/25 09:19 Oxygen Delivery Method Room Air 09/10/25 09:19 BMI result Body Mass Index 33.7 Tobacco/Smoking Status: Tobacco use Status Tobacco use date assessed 09/10/25 09/10/25 09:23 Patient Tobacco Use Status Never used Tobacco 09/10/25 09:23 e-Cigarette/Vaping Use Never Used 09/10/25 09:23 Thrive Assessment: Date of Thrive Assessment Date Thrive assessed 06/30/25 09/10/25 09:23 Currently or been in a relationship where the following occur: No concerns reported Coding Level of Care Code Est Pt Level 4 (39575) Complex visit Add On G2211 Diagnoses Essential hypertension I10 Family history of early CAD Z82.49 Pure hypercholesterolemia E78.00 Hyperlipidemia type: pure hypercholesterolemia Hypothyroidism, unspecified type E03.9 Hypothyroidism type: unspecified Obesity (BMI 30.0-34.9) E66.811 Elevated liver enzymes R74.8 Anxiety F41.9 Assessment & Plan Assessment & Plan (1) Essential hypertension: Code(s): I10 - Essential (primary) hypertension Category: Medical Plan: The patient is not anymore however she wants to try treating anxiety 1st and see if blood pressure normalizes. She is also losing weight and exercising and following a healthy diet now. (2) Family history of early CAD: Code(s): Z82.49 - Family history of ischemic heart disease and other diseases of the circulatory system Category: Medical Plan: Proceed with coronary artery CT scan. Modify risk factors. (3) Hyperlipidemia: Code(s): E78.5 - Hyperlipidemia, unspecified Category: Medical Qualifiers: Hyperlipidemia type: pure hypercholesterolemia Qualified Code(s): E78.00 - Pure hypercholesterolemia, unspecified Plan: Recommended Mediterranean diet, avoidance of smoking and alcohol. Congratulated on weight loss. (4) Hypothyroid: Code(s): E03.9 - Hypothyroidism, unspecified Category: Medical Qualifiers: Hypothyroidism type: unspecified Qualified Code(s): E03.9 - Hypot hyroidism, unspecified Plan: Continue levothyroxine. (5) Obesity (BMI 30.0-34.9): Code(s): E66.811 - Obesity, class 1 Category: Medical (6) Elevated liver enzymes: Code(s): R74.8 - Abnormal levels of other serum enzymes Category: Medical Plan: She will schedule the liver ultrasound. (7) Anxiety: Code(s): F41.9 - Anxiety disorder, unspecified Category: Medical Plan: We discussed coping strategies. Defers referral to psychologist. She would like to try medication again. Start Prozac 20 mg daily. Black box warning and side effects reviewed. Plan Follow up in 6 weeks. Medications: New fluoxetine (Prozac) 20 mg PO DAILY 90 caps 0RF
[2025-09-10 09:19] VITALS: BP 156/88; PULSE 82; RESP 15; TEMP 36.8; O2SAT 98; BMI 33.7
== END 2025-09-10 09:48 | disposition home or self-care (01) ==
LOC: HO.HMCFM 09:03
PROVIDERS: PCP Physician Assistant Medical; Visit Provider Physician Assistant Medical
DX: I10 Essential (primary) hypertension (principal); E66.811 Obesity, class 1; Z68.33 Body mass index [BMI] 33.0-33.9, adult; E78.00 Pure hypercholesterolemia, unspecified; Z82.49 Family history of ischemic heart disease and other diseases of the circulatory system; E03.9 Hypothyroidism, unspecified; R74.8 Abnormal levels of other serum enzymes; F41.9 Anxiety disorder, unspecified